=== PATIENT | male | born 1965 | race Two or more races ===

== ENCOUNTER 2022-09-17 22:46 | Inpatient (IN) | payer MEDICAID ==
[~2022-09-17] VITALS: Ht 175.3 cm; Wt 115.3 kg
[2022-09-17 23:38] LABS: Basophils # (auto) 0 10 ^3/uL (0-0.2); Basophils % (auto) 0.4 % (0.0-2.0); Eosinophils # (auto) 0.1 10 ^3/uL (0-0.8); Eosinophils % (auto) 1.2 % (0.0-7.0); Hematocrit 49.4 % (41.0-53.0); Hemoglobin 16.3 g/dL (13.5-17.5); Lymphocytes # (auto) 2.2 10 ^3/uL (0.4-5.4); Lymphocytes % (auto) 29.4 % (10.0-50.0); Mean Corpuscular Hemoglobin 29.5 pg (28.0-32.0); Mean Corpuscular Hgb Conc. 33.1 g/dL (32.0-36.0); Mean Corpuscular Volume 89.3 fL (80.0-100.0); Monocytes # (auto) 0.7 10 ^3/uL (0-1.3); Monocytes % (auto) 9.9 % (0.0-12.0); Neutrophils # (auto) 4.4 10 ^3/uL (1.6-8.6); Neutrophils % (auto) 59.1 % (37.0-80.0); Nucleated Red Blood Cells % 0.1 %; Red Blood Cells 5.53 10^6/uL (4.5-5.90); Red Cell Distribution Width 15.9 % (11.8-14.3); White Blood Cell 7.3 10^3/uL (4.4-10.8)
[2022-09-17 23:56] LABS: Albumin 3.2 g/dL (3.4-5.0); BUN/Creatinine Ratio 20.2; Bilirubin, Total 0.3 mg/dL (0.2-1.0); Calcium 8.8 mg/dL (8.5-10.1); Potassium 4.1 mmol/L (3.5-5.1); Total Protein 7.1 g/dL (6.4-8.2)
[2022-09-18] VITALS (33 sets, daily range): BP systolic 111–194; BP diastolic 67–89
[2022-09-18 00:06] LABS: Urine Bacteria NONE SEEN /hpf (None Seen); Urine Blood 1+ /uL (Negative); Urine WBC 2 /hpf (0 - 3)
[2022-09-18] MEDS ORDERED: HEPARIN SODIUM (PORCINE) 5000 UNITS/ML 1ML VIAL IV ONE (02:15)
[2022-09-18] MEDS ORDERED: ASPirin 325 MG TAB PO ONE (02:15)
[2022-09-18] MEDS ORDERED: HEPARIN DRIP/D5W 100UNITS/ML 250 ML IV SCH (04:00)
[2022-09-18 04:05] LABS: INR 1.07 (0.9-1.15)
[2022-09-18 04:34] LABS: Partial Thromboplastin Time 79.2 sec (24.6-33.4)
[2022-09-18] MEDS ORDERED: LORazepam 2MG/ML-1ML VIAL ONE (08:47)
[2022-09-18] MEDS: MAGNESIUM SULFATE 1GM/100ML 100 ML IV SCH (08:54)
[2022-09-18] MEDS ORDERED: AMIODARONE HCL 150 MG in D5W 5% 100 ML IV ONE ×2 (09:00→09:30)
[2022-09-18] MEDS ORDERED: LORazepam 2MG/ML-1ML VIAL IV ONE (09:00)
[2022-09-18] MEDS ORDERED: AMIODARONE HCL (50 MG/ ML) 3 ML VIAL IV ONE (09:01)
[2022-09-18] MEDS ORDERED: MORPHINE SULFATE INJ 2 MG/ml SYRG IV PRN ×2 (09:15→11:30)
[2022-09-18] MEDS ORDERED: HYDROcodone-ACET 5/325MG TAB PO PRN (09:15)
[2022-09-18] MEDS ORDERED: ACETAMINOPHEN 325 MG TAB PO PRN (09:15)
[2022-09-18] MEDS ORDERED: AMIODARONE 450mg/250ml AE 250 ML IV SCH (09:15)
[2022-09-18] MEDS ORDERED: NITROGLYCERIN 0.4 MG SL TAB SL PRN ×2 (09:15→11:30)
[2022-09-18 10:28] LABS: INR 0.97 (0.9-1.15); Partial Thromboplastin Time 36.2 sec (24.6-33.4)
[2022-09-18] MEDS ORDERED: ANGIOMAX 250 MG VIAL IV ONE (10:30)
[2022-09-18] MEDS ORDERED: VERAPAMIL 2.5MG/ML INJ 2ML VIAL IV ONE (10:30)
[2022-09-18] MEDS ORDERED: cefTRIAXone 1GM/50ML D5W 50 ML IV ONE (10:30)
[2022-09-18] MEDS ORDERED: MIDAZOLAM HCL 2MG/2ML 2ml VIAL (1mg/ml) ONE (10:31)
[2022-09-18] MEDS ORDERED: SODIUM CHL 0.9% 0 ML ONE (10:31)
[2022-09-18] MEDS ORDERED: fentaNYL CITRATE 100 MCG/2 ML VL ONE (10:31)
[2022-09-18] MEDS ORDERED: LIDOCAINE 2%HCL (LOCAL ANESTH.) INJ 20ML MDV ONE (10:32)
[2022-09-18] MEDS ORDERED: HEPARIN SODIUM (PORCINE) 5000 UNITS/ML 1ML VIAL ONE (10:35)
[2022-09-18] MEDS ORDERED: hydrALAZINE HCL 20 MG/ML VL IV ONE (10:45)
[2022-09-18 10:57] LABS: Basophils # (auto) 0.2 10 ^3/uL (0-0.2); Basophils % (auto) 2.4 % (0.0-2.0); Eosinophils # (auto) 0.1 10 ^3/uL (0-0.8); Eosinophils % (auto) 1.5 % (0.0-7.0); Hematocrit 47.3 % (41.0-53.0); Hemoglobin 15.5 g/dL (13.5-17.5); Lymphocytes # (auto) 1.7 10 ^3/uL (0.4-5.4); Lymphocytes % (auto) 24.3 % (10.0-50.0); Mean Corpuscular Hemoglobin 29.3 pg (28.0-32.0); Mean Corpuscular Hgb Conc. 32.8 g/dL (32.0-36.0); Mean Corpuscular Volume 89.4 fL (80.0-100.0); Monocytes # (auto) 0.6 10 ^3/uL (0-1.3); Monocytes % (auto) 8.4 % (0.0-12.0); Neutrophils # (auto) 4.5 10 ^3/uL (1.6-8.6); Neutrophils % (auto) 63.4 % (37.0-80.0); Nucleated Red Blood Cells % 0.1 %; Red Blood Cells 5.29 10^6/uL (4.5-5.90); Red Cell Distribution Width 16.1 % (11.8-14.3); White Blood Cell 7.1 10^3/uL (4.4-10.8)
[2022-09-18] MEDS ORDERED: DEXTROSE (50%) 50ML SYRG IV PRN (11:00)
[2022-09-18 11:07] LABS: BUN/Creatinine Ratio 19.8; Calcium 8.4 mg/dL (8.5-10.1); Potassium 4.4 mmol/L (3.5-5.1)
[2022-09-18 11:10] LABS: Cholesterol 119 mg/dL (< 200); HDL Cholesterol 21 mg/dL (40-59); LDL Cholesterol 93 mg/dL (< 100); Triglycerides 170 mg/dL (< 150)
[2022-09-18] MEDS ORDERED: IODIXANOL 320MG/ML 100ML BTL IV ONE (11:19)
[2022-09-18] MEDS ORDERED: FUROSEMIDE 20 MG/2 ML VIAL ONE (11:25)
[2022-09-18] MEDS: ACCU-CHEK COMFORT CURVE STRIP VI SCH ×3 (12:00→23:51)
[2022-09-18] MEDS: InsuLIN REG 1unit/0.01ml Soln (100units/ml) SC SCH ×3 (12:00→23:55)
[2022-09-18] MEDS: METOPROLOL TARTRATE 25 MG TAB PO SCH ×2 (12:31→22:15)
[2022-09-18] MEDS: DOXYCYCLINE 100MG/250ML 250 ML IV SCH ×2 (14:00→22:14)
[2022-09-18 14:03] LABS: Lactic Acid w/Reflex 2.2 mmol/L (0.4-2.0)
[2022-09-18] MEDS ORDERED: OPTISON 3ml Vial for INJ IV ONE (14:40)
[2022-09-18] MEDS: AMIODARONE 450mg/250ml AE 250 ML IV SCH (16:04)
[2022-09-18] MEDS: FUROSEMIDE 100 MG/10ML VIAL IV SCH (17:51)
[2022-09-18] MEDS: ATORVASTATIN 20 MG TAB PO SCH (22:15)
[2022-09-19] VITALS (44 sets, daily range): BP systolic 101–163; BP diastolic 59–97
[2022-09-19 04:43] LABS: Basophils # (auto) 0 10 ^3/uL (0-0.2); Basophils % (auto) 0.4 % (0.0-2.0); Eosinophils # (auto) 0.1 10 ^3/uL (0-0.8); Eosinophils % (auto) 0.8 % (0.0-7.0); Hematocrit 48.5 % (41.0-53.0); Hemoglobin 15.8 g/dL (13.5-17.5); Lymphocytes # (auto) 2.2 10 ^3/uL (0.4-5.4); Mean Corpuscular Hgb Conc. 32.6 g/dL (32.0-36.0); Mean Corpuscular Volume 88.9 fL (80.0-100.0); Monocytes # (auto) 1.1 10 ^3/uL (0-1.3); Monocytes % (auto) 15.4 % (0.0-12.0); Neutrophils # (auto) 3.7 10 ^3/uL (1.6-8.6); Neutrophils % (auto) 52.4 % (37.0-80.0); Nucleated Red Blood Cells % 0.2 %; Red Blood Cells 5.46 10^6/uL (4.5-5.90); Red Cell Distribution Width 15.7 % (11.8-14.3); White Blood Cell 7.1 10^3/uL (4.4-10.8)
[2022-09-19 05:02] LABS: Potassium 3.6 mmol/L (3.5-5.1)
[2022-09-19 05:13] LABS: Albumin 2.9 g/dL (3.4-5.0); BUN/Creatinine Ratio 17.9; Bilirubin, Total 1.1 mg/dL (0.2-1.0); Calcium 8.6 mg/dL (8.5-10.1); Magnesium 2.4 mg/dL (1.6-2.6); Total Protein 6.6 g/dL (6.4-8.2)
[2022-09-19] MEDS: ACCU-CHEK COMFORT CURVE STRIP VI SCH ×4 (05:57→23:30)
[2022-09-19] MEDS: FUROSEMIDE 100 MG/10ML VIAL IV SCH ×2 (05:58→17:35)
[2022-09-19] MEDS: InsuLIN REG 1unit/0.01ml Soln (100units/ml) SC SCH ×4 (05:58→23:30)
[2022-09-19] MEDS: AMIODARONE 450mg/250ml AE 250 ML IV SCH (06:33)
[2022-09-19] MEDS ORDERED: cefTRIAXone 1GM/50ML D5W 50 ML IV SCH (09:00)
[2022-09-19] MEDS: SPIRONOLACTONE 25 MG TAB PO SCH (09:03)
[2022-09-19] MEDS: METOPROLOL TARTRATE 25 MG TAB PO SCH ×2 (09:04→23:30)
[2022-09-19 09:29] LABS: Hepatitis B Surface Antibody Negative (Negative)
[2022-09-19] MEDS ORDERED: POTASSIUM CHLORIDE 40 MEQ, LIDOCAINE 1% (LOCAL ANESTH.) 4 ML in SODIUM CHL 0.9% 250 ML IV ONE (09:45)
[2022-09-19 09:51] LABS: Hepatitis A Total Antibody Positive (Negative)
[2022-09-19] MEDS ORDERED: POTASSIUM CHL 20 Meq TABLET PO ONE (10:15)
[2022-09-19] MEDS: DOXYCYCLINE 100MG/250ML 250 ML IV SCH (10:30)
[2022-09-19] MEDS ORDERED: ASPI-543 PO (10:53)
[2022-09-19] MEDS ORDERED: METO-289 PO (10:53)
[2022-09-19] MEDS ORDERED: SACU1TAB PO (10:57)
[2022-09-19] MEDS ORDERED: FURO40TA4 PO (10:57)
[2022-09-19] MEDS ORDERED: DAPA1TAB4 PO (10:57)
[2022-09-19] MEDS ORDERED: SPIR25TA8 PO (10:57)
[2022-09-19 11:34] LABS: Hepatitis C Antibody Negative (Negative)
[2022-09-19] MEDS ORDERED: AMIODARONE HCL (50 MG/ ML) 3 ML VIAL IV ONE (12:37)
[2022-09-19] MEDS ORDERED: MAGNESIUM SULF 50% 40 MEQ/10 ML VL IV ONE (12:37)
[2022-09-19] MEDS ORDERED: ENOXAPARIN SOD 40 MG/0.4 ML SYRINGE SC ONE (14:15)
[2022-09-19] MEDS ORDERED: AMIODARONE HCL 200 MG TAB PO ONE (15:15)
[2022-09-19] MEDS: ATORVASTATIN 20 MG TAB PO SCH (23:30)
[2022-09-19] MEDS: AMIODARONE HCL 200 MG TAB PO SCH (23:30)
[2022-09-20] VITALS (30 sets, daily range): BP systolic 105–152; BP diastolic 55–101
[2022-09-20] MEDS: FUROSEMIDE 100 MG/10ML VIAL IV SCH (06:00)
[2022-09-20] MEDS: ACCU-CHEK COMFORT CURVE STRIP VI SCH ×3 (06:00→16:45)
[2022-09-20] MEDS: InsuLIN REG 1unit/0.01ml Soln (100units/ml) SC SCH ×3 (06:00→16:53)
[2022-09-20 07:42] LABS: Basophils # (auto) 0.1 10 ^3/uL (0-0.2); Basophils % (auto) 0.7 % (0.0-2.0); Eosinophils # (auto) 0 10 ^3/uL (0-0.8); Eosinophils % (auto) 0.7 % (0.0-7.0); Hematocrit 50.8 % (41.0-53.0); Hemoglobin 16.9 g/dL (13.5-17.5); Lymphocytes # (auto) 2.1 10 ^3/uL (0.4-5.4); Lymphocytes % (auto) 29.3 % (10.0-50.0); Mean Corpuscular Hemoglobin 29.2 pg (28.0-32.0); Mean Corpuscular Hgb Conc. 33.3 g/dL (32.0-36.0); Mean Corpuscular Volume 87.5 fL (80.0-100.0); Monocytes # (auto) 0.9 10 ^3/uL (0-1.3); Monocytes % (auto) 12.4 % (0.0-12.0); Neutrophils # (auto) 4.1 10 ^3/uL (1.6-8.6); Neutrophils % (auto) 56.9 % (37.0-80.0); Nucleated Red Blood Cells % 0.1 %; Red Cell Distribution Width 15.8 % (11.8-14.3); White Blood Cell 7.3 10^3/uL (4.4-10.8)
[2022-09-20 08:10] LABS: BUN/Creatinine Ratio 23.5; Calcium 8.5 mg/dL (8.5-10.1); Potassium 3.6 mmol/L (3.5-5.1)
[2022-09-20] MEDS: ENOXAPARIN SOD 40 MG/0.4 ML SYRINGE SC SCH (08:34)
[2022-09-20] MEDS: SPIRONOLACTONE 25 MG TAB PO SCH (09:21)
[2022-09-20] MEDS: AMIODARONE HCL 200 MG TAB PO SCH ×2 (09:21→22:40)
[2022-09-20] MEDS: METOPROLOL TARTRATE 25 MG TAB PO SCH ×2 (09:22→22:40)
[2022-09-20 09:51] LABS: INR 1.07 (0.9-1.15); Partial Thromboplastin Time 28.9 sec (24.6-33.4)
[2022-09-20] MEDS ORDERED: VANCOMYCIN HCL 1000 MG VL ONE (12:49)
[2022-09-20] MEDS ORDERED: MIDAZOLAM HCL 2MG/2ML 2ml VIAL (1mg/ml) ONE ×2 (12:49→14:33)
[2022-09-20] MEDS ORDERED: VANCOMYCIN 1GM/250ML 250 ML IV ONE (12:49)
[2022-09-20] MEDS ORDERED: fentaNYL CITRATE 100 MCG/2 ML VL ONE ×2 (12:49→14:36)
[2022-09-20] MEDS ORDERED: LIDOCAINE 2%HCL (LOCAL ANESTH.) INJ 20ML MDV ONE (12:50)
[2022-09-20] MEDS ORDERED: IOHEXOL 350 MG/ML 100ML IJ ONE (12:50)
[2022-09-20] MEDS ORDERED: HYDROmorphone HCL 2 MG/ML VL/or syr ONE (14:16)
[2022-09-20] MEDS: FUROSEMIDE 40 MG TAB PO SCH (16:52)
[2022-09-20] MEDS: ATORVASTATIN 20 MG TAB PO SCH (22:35)
[2022-09-21] MEDS: ACCU-CHEK COMFORT CURVE STRIP VI SCH ×4 (00:50→17:18)
[2022-09-21] MEDS: InsuLIN REG 1unit/0.01ml Soln (100units/ml) SC SCH ×4 (01:09→17:23)
[2022-09-21] MEDS ORDERED: VANCOMYCIN 1GM/250ML 250 ML IV SCH (02:00)
[2022-09-21 05:00] VITALS: BP 120/80
[2022-09-21] MEDS: FUROSEMIDE 40 MG TAB PO SCH ×2 (07:01→17:16)
[2022-09-21 08:00] VITALS: BP 118/73
[2022-09-21] MEDS: AMIODARONE HCL 200 MG TAB PO SCH ×2 (09:22→22:45)
[2022-09-21] MEDS: ENOXAPARIN SOD 40 MG/0.4 ML SYRINGE SC SCH (09:22)
[2022-09-21] MEDS: METOPROLOL TARTRATE 25 MG TAB PO SCH ×3 (09:22→22:58)
[2022-09-21] MEDS: SPIRONOLACTONE 25 MG TAB PO SCH (09:23)
[2022-09-21 12:00] VITALS: BP 121/80
[2022-09-21] MEDS ORDERED: ATOR20TA50 PO (14:33)
[2022-09-21] MEDS ORDERED: FURO40TA4 PO (14:33)
[2022-09-21] MEDS: MORPHINE SULFATE INJ 2 MG/ml SYRG IV PRN (14:33)
[2022-09-21] MEDS ORDERED: AMIO200T33 PO (14:34)
[2022-09-21] MEDS ORDERED: POTASSIUM EFFERVESENT TAB 25 MEQ GT ONE (15:45)
[2022-09-21 16:00] VITALS: BP 126/77
[2022-09-21 22:00] VITALS: BP 121/72
[2022-09-21] MEDS: MAGNESIUM OXIDE 400 MG TAB PO SCH (22:52)
[2022-09-21] MEDS: ATORVASTATIN 20 MG TAB PO SCH (22:53)
[2022-09-22] MEDS: InsuLIN REG 1unit/0.01ml Soln (100units/ml) SC SCH ×4 (00:19→18:00)
[2022-09-22] MEDS: ACCU-CHEK COMFORT CURVE STRIP VI SCH ×4 (00:22→18:00)
[2022-09-22] MEDS: MORPHINE SULFATE INJ 2 MG/ml SYRG IV PRN ×2 (04:35→09:18)
[2022-09-22 05:00] VITALS: BP 144/86
[2022-09-22] MEDS: FUROSEMIDE 40 MG TAB PO SCH ×2 (05:53→18:59)
[2022-09-22 09:15] VITALS: BP 124/86
[2022-09-22] MEDS: METOPROLOL TARTRATE 25 MG TAB PO SCH (09:18)
[2022-09-22] MEDS: SPIRONOLACTONE 25 MG TAB PO SCH (09:19)
[2022-09-22] MEDS: AMIODARONE HCL 200 MG TAB PO SCH (09:19)
[2022-09-22] MEDS ORDERED: SULFAMETHOX W/TRIMETH(800/160MG) DS TAB PO SCH ×2 (10:00→10:15)
[2022-09-22] MEDS: MAGNESIUM OXIDE 400 MG TAB PO SCH (10:30)
[2022-09-22] MEDS: ENOXAPARIN SOD 40 MG/0.4 ML SYRINGE SC SCH (10:32)
[2022-09-22 10:51] LABS: Hematocrit 47.5 % (41.0-53.0); Hemoglobin 15.6 g/dL (13.5-17.5); Mean Corpuscular Hemoglobin 28.8 pg (28.0-32.0); Mean Corpuscular Hgb Conc. 32.8 g/dL (32.0-36.0); Mean Corpuscular Volume 87.8 fL (80.0-100.0); Red Cell Distribution Width 15.6 % (11.8-14.3)
[2022-09-22 11:05] LABS: Basophils % (manual) 0 (0.0-2.0); Blast Cells 0; Eosinophils % (manual) 0 (0-7); Promyelocytes % 0; Reactive Lymphocytes 0
[2022-09-22 11:11] LABS: Albumin 2.7 g/dL (3.4-5.0); BUN/Creatinine Ratio 20.5; Potassium 3.8 mmol/L (3.5-5.1)
[2022-09-22 11:48] LABS: Bilirubin, Total 0.6 mg/dL (0.2-1.0); Total Protein 7.8 g/dL (6.4-8.2)
[2022-09-22 12:25] LABS: Band Neutrophils % (manual) 20; Lymphocytes % (manual) 29 (10.0-50.0); Metamyelocytes % 1; Monocytes % (manual) 4 (0-12); Myelocytes % 1
[2022-09-22 13:00] VITALS: BP 109/67
[2022-09-22] MEDS ORDERED: METO-289 PO ×2 (15:54)
[2022-09-22] MEDS ORDERED: BACDST PO (15:57)
[2022-09-22 17:00] VITALS: BP 115/76
[2022-09-22 17:49] VITALS: BP 115/76
[2022-09-22] MEDS ORDERED: SACUBITRIL-VALSARTAN 24mg/26mg TAB PO SCH (22:00)
== END 2022-09-22 19:08 | disposition home or self-care (01) | DRG 179 ==
LOC: ER 22:52 → OVERFLOW 09-18 09:38 → EDBD 09-18 09:38 → ICU WEST 09-18 12:18 → TELE-CENTR 09-20 14:02
PROVIDERS: ADMIT Registered Nurse; ATTEND Student in an Organized Health Care Education/Training Program
PROC: 4A023N7 Measurement of Cardiac Sampling and Pressure, Left Heart, Percutaneous Approach (ICD-10-PCS; principal; 2022-09-18)
PROC: B211YZZ Fluoroscopy of Multiple Coronary Arteries using Other Contrast (ICD-10-PCS; 2022-09-18)
PROC: B215YZZ Fluoroscopy of Left Heart using Other Contrast (ICD-10-PCS; 2022-09-18)
PROC: 0JH608Z Insertion of Defibrillator Generator into Chest Subcutaneous Tissue and Fascia, Open Approach (ICD-10-PCS; 2022-09-20)
PROC: 02H63KZ Insertion of Defibrillator Lead into Right Atrium, Percutaneous Approach (ICD-10-PCS; 2022-09-20)
PROC: 02HK3KZ Insertion of Defibrillator Lead into Right Ventricle, Percutaneous Approach (ICD-10-PCS; 2022-09-20)
DX: I47.1 Supraventricular tachycardia (principal); I50.23 Acute on chronic systolic (congestive) heart failure; E88.09 Other disorders of plasma-protein metabolism, not elsewhere classified; D69.6 Thrombocytopenia, unspecified; L03.114 Cellulitis of left upper limb; E66.01 Morbid (severe) obesity due to excess calories; E11.65 Type 2 diabetes mellitus with hyperglycemia; E78.5 Hyperlipidemia, unspecified; I25.10 Atherosclerotic heart disease of native coronary artery without angina pectoris; I11.0 Hypertensive heart disease with heart failure; Z20.822 Contact with and (suspected) exposure to COVID-19; I25.2 Old myocardial infarction; Z95.5 Presence of coronary angioplasty implant and graft; Z95.810 Presence of automatic (implantable) cardiac defibrillator; Z68.37 Body mass index [BMI] 37.0-37.9, adult
CPT/HCPCS: 33249; 36415; 71045; 71046; 80048; 80053; 80061; 81001; 82962; 83036; 83605; 83735; 83880; 84443; 84484; 85007; 85025; 85027; 85379; 85610; 85730; 86704; 86706; 86708; 86803; 86850; 86900; 86901; 87040; 87081; 87340; 87426; 93005; 93306; 93458; 93971; 96365; 96368; 96375; 99152; 99153; 99291; G0378; J0696; J1815; J2001; J2250; J3490; J7060; Q9956; Q9967